=== PATIENT | female | born 1960 | race Caucasian/White ===

== ENCOUNTER 2021-12-07 09:15 | Outpatient (RCR) | payer MEDICARE, MEDICAID, SELFPAY | END 2022-09-21 13:07 | disposition home or self-care (01) | PROVIDERS: Visit Provider Family Medicine | DX: I89.0 Lymphedema, not elsewhere classified (principal); Z51.89 Encounter for other specified aftercare | CPT/HCPCS: 97166; 97530; 97535 ==